=== PATIENT | female | born 1980 | race American Indian/Alaskan Native ===

== ENCOUNTER 2017-09-21 18:04 | Emergency (ER) | payer SELFPAY ==
[2017-09-21 18:52] VITALS: BP 120/69
[2017-09-21] MEDS ORDERED: TORADOL IM ONE (19:11)
[2017-09-21] MEDS ORDERED: DELTASONE PO ONE (19:11)
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
== END 2017-09-21 20:30 | disposition home or self-care (01) ==
LOC: ED 18:04
DX: S39.012A Strain of muscle, fascia and tendon of lower back, initial encounter (principal); X58.XXXA Exposure to other specified factors, initial encounter; Y93.89 Activity, other specified; Y92.89 Other specified places as the place of occurrence of the external cause; Y99.8 Other external cause status
CPT/HCPCS: 96372; 99282; J1885; J7512

== ENCOUNTER 2018-05-14 12:20 | Emergency (ER) | payer OTHER ==
[2018-05-14 12:30] VITALS: BP 154/79
[2018-05-14] MEDS ORDERED: TORADOL IM ONE (14:36)
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
== END 2018-05-14 17:25 | disposition home or self-care (01) ==
LOC: ED 12:20
DX: M54.2 Cervicalgia (principal); M54.89 Other dorsalgia; F17.200 Nicotine dependence, unspecified, uncomplicated; V89.2XXA Person injured in unspecified motor-vehicle accident, traffic, initial encounter; Y93.89 Activity, other specified; Y99.8 Other external cause status; Y92.410 Unspecified street and highway as the place of occurrence of the external cause
CPT/HCPCS: 71046; 72040; 72070; 72100; 96372; 99283; J1885

== ENCOUNTER 2018-06-19 14:15 | Emergency (ER) | payer OTHER ==
[2018-06-19 15:15] VITALS: BP 111/87
--- NOTE | 2018-06-19 15:16 | Emergency Department Report ---
Addendum entered and electronically signed by JASS LANCE FNP 06/19/18 15:17: Blank Doc - Documentation Documentation: Ice applied to left finger. Original Note: Blank Doc - Documentation Documentation: This is a 38 y.o. female that presents with pain to 3rd proximal phalanx. Patient accidentally closed her finger in a chair a few hours ago. This initial assessment diagnostic orders/clinical plan/treatment(s) is/are subject to change based on patient's health status, clinical progression and re- assessment by fellow clinical providers in the ED. Further treatment and workup at subsequent clinical providers discretion. Patient/guardians urged not to elope from ED s their condition may be serious if not clinically assessed and managed. Initial orders include: 1- XR of left fingers Fast track for further evaluation.
[2018-06-19] MEDS ORDERED: NORCO 7.5/325 PO ONE (16:15)
--- NOTE | 2018-06-19 16:46 | Emergency Department Report ---
ED Upper Extremity Inj HPI - General Chief Complaint: Extremity Injury, Upper Stated Complaint: LEFT FINGER INJURY Time Seen by Provider: 06/19/18 15:11 Source: patient Mode of arrival: Ambulatory Limitations: No Limitations - History of Present Illness Initial Comments: 38-year-old female presents to ED with injury to left middle finger. Patient states she fell and was attempting to stop her fall by holding on to a folding step ladder, and the ladder folded onto her finger. Patient states she felt something pop. Has abrasion to finger. States tetanus is UTD Complaint: Injury to:: left, finger -: This afternoon Other Injuries: none Place: home Improves With: immobilization Worsens With: movement of extremity Context: fall, crush Associated Symptoms: numbness, heard/felt popping sensat - Related Data Previous Rx's Medication Instructions Recorded Last Taken Type Ibuprofen [Motrin] 600 mg PO Q8H PRN #30 tablet 09/21/17 Unknown Rx Prednisone [predniSONE 10 mg 10 mg PO .TAPER #1 tab.ds.pk 09/21/17 Unknown Rx (6-Day Pack, 21 Tabs)] Cyclobenzaprine [Flexeril 10 MG 10 mg PO TID PRN #12 tablet 05/14/18 Unknown Rx TAB] Ibuprofen 800 mg PO TID PRN #20 tablet 05/14/18 Unknown Rx HYDROcodone/ACETAMINOPHEN [[place] 1 each PO Q6HR PRN #10 tablet 06/19/18 Unknown Rx 5-325 Tablet] Naproxen [Naprosyn] 500 mg PO BID #20 tablet 06/19/18 Unknown Rx cephALEXin [Keflex] 500 mg PO Q12HR #10 cap 06/19/18 Unknown Rx Allergies Allergy/AdvReac Type Severity Reaction Status Date / Time No Known Allergies Allergy Verified 05/14/18 12:28 ED Review of Systems ROS: Stated complaint: LEFT FINGER INJURY Other details as noted in HPI Comment: All other systems reviewed and negative Musculoskeletal: as per HPI Neurological: paresthesias ED Past Medical Hx - Past Medical History Additional medical history: "When born my right arm was broke". Cyst on Brain - Surgical History Past Surgical History?: No - Social History Smoking Status: Current Every Day Smoker Substance Use Type: Marijuana, Prescribed - Medications Home Medications: Home Medications Medication Instructions Recorded Confirmed Last Taken Type Ibuprofen [Motrin] 600 mg PO Q8H PRN #30 tablet 09/21/17 Unknown Rx Prednisone [predniSONE 10 mg 10 mg PO .TAPER #1 tab.ds.pk 09/21/17 Unknown Rx (6-Day Pack, 21 Tabs)] Cyclobenzaprine [Flexeril 10 MG 10 mg PO TID PRN #12 tablet 05/14/18 Unknown Rx TAB] Ibuprofen 800 mg PO TID PRN #20 tablet 05/14/18 Unknown Rx HYDROcodone/ACETAMINOPHEN [[place] 1 each PO Q6HR PRN #10 tablet 06/19/18 Unknown Rx 5-325 Tablet] Naproxen [Naprosyn] 500 mg PO BID #20 tablet 06/19/18 Unknown Rx cephALEXin [Keflex] 500 mg PO Q12HR #10 cap 06/19/18 Unknown Rx ED Physical Exam - General Limitations: No Limitations General appearance: alert, in no apparent distress - Head Head exam: Present: atraumatic, normocephalic - Eye Eye exam: Present: normal appearance - ENT ENT exam: Present: mucous membranes moist - Neck Neck exam: Present: normal inspection - Respiratory Respiratory exam: Present: normal lung sounds bilaterally. Absent: respiratory distress - Cardiovascular Cardiovascular Exam: Present: regular rate, normal rhythm - GI/Abdominal GI/Abdominal exam: Absent: distended - Extremities Exam Extremities exam: Present: other (moderate swelling to left middle finger w/ majority of tenderness to PIP, slight bruising present, small abrasion present laterally, pt able to flex and extend minimally due to pain and swelling) - Neurological Exam Neurological exam: Present: motor sensory deficit (decreased sensation to distal tip of left middle finger) - Psychiatric Psychiatric exam: Present: normal affect, normal mood - Skin Skin exam: Present: warm, dry ED Course Vital Signs 06/19/18 06/19/18 06/19/18 15:07 15:12 16:21 Temperature 97.8 F 97.8 F Pulse Rate 59 L 59 L Respiratory 18 20 18 Rate Blood Pressure 111/87 Blood Pressure 111/67 [Left] O2 Sat by Pulse 99 99 Oximetry ED Medical Decision Making - Radiology Data Radiology results: pending, image reviewed interpreted by me: Finger xray: no acute fracture or dislocation * PACS system down; no official interpretation at this time - Medical Decision Making 38-year-old female with crush injury to left middle finger. No obvious fracture or dislocation on plain films. The official read at this time as there are technical difficulties and sending images to radiology service. Possible ligamentous injury. Finger splint placed. Prescription given for pain meds and antibiotics the patient has small abrasion to the lateral aspect of her finger. Orthopedic follow-up given. Return precautions given. - Differential Diagnosis fracture, dislocation, sprain Critical care attestation.: If time is entered above; I have spent that time in minutes in the direct care of this critically ill patient, excluding procedure time. ED Disposition Clinical Impression: Contusion of left middle finger Disposition: TO HOME OR SELFCARE Is pt being admited?: No Condition: Stable Instructions: Finger Sprain (ED) Prescriptions: cephALEXin [Keflex] 500 mg PO Q12HR #10 cap HYDROcodone/ACETAMINOPHEN [[place] 5-325 Tablet] 1 each PO Q6HR PRN #10 tablet PRN Reason: pain Naproxen [Naprosyn] 500 mg PO BID #20 tablet Referrals: PETER MERCADO MD [Primary Care Provider] - 3-5 Days TERRY CUNNINGHAM MD [Staff Physician] - 3-5 Days Time of Disposition: 16:44
--- NOTE | 2018-06-22 08:16 | XRay Report ---
FINAL REPORT EXAM: XR FINGER(S) 2+V LT HISTORY: 3rd proximal finger TECHNIQUE: AP, lateral, and oblique views of the left 3rd finger PRIORS: None. FINDINGS: There is no evidence for acute fracture or dislocation. Generalized soft tissue swelling of the 3rd f nam is seen. No radiopaque foreign bodies are seen. Bony mineralization is normal and joint spaces are maintained. IMPRESSION: No acute bony abnormality noted. Soft tissue swelling of the 3rd digit
== END 2018-06-19 17:30 | disposition home or self-care (01) ==
LOC: ED 14:15
DX: S60.032A Contusion of left middle finger without damage to nail, initial encounter (principal); F17.200 Nicotine dependence, unspecified, uncomplicated; F12.90 Cannabis use, unspecified, uncomplicated; W23.0XXA Caught, crushed, jammed, or pinched between moving objects, initial encounter; Y93.89 Activity, other specified; Y92.89 Other specified places as the place of occurrence of the external cause; Y99.8 Other external cause status
CPT/HCPCS: 99283

== ENCOUNTER 2018-10-19 08:46 | Emergency (ER) | payer SELFPAY ==
[2018-10-19] MEDS ORDERED: TYLENOL PO ONE (09:02)
[2018-10-19] MEDS ORDERED: TYLENOL ONE (09:05)
[2018-10-19 09:29] LABS: Basophils % (Auto) 0.4 % (0.0-1.8); Hematocrit 37.4 % (30.3-42.9); Hemoglobin 12.7 gm/dl (10.1-14.3); Lymphocytes # (Auto) 1.2 K/mm3 (1.2-5.4); Lymphocytes % (Auto) 9.8 % (13.4-35.0); Mean Corpuscular HGB Conc 34 % (30-34); Mean Corpuscular Volume 84 fl (79-97); Monocytes # (Auto) 0.6 K/mm3 (0.0-0.8); Monocytes % (Auto) 4.7 % (0.0-7.3); Platelet Count 246 K/mm3 (140-440); Red Blood Count 4.48 M/mm3 (3.65-5.03); Red Cell Distribution Width 14.1 % (13.2-15.2)
[2018-10-19 09:47] LABS: Alanine Aminotransferase 7 units/L (7-56); BUN/Creatinine Ratio 8; Blood Urea Nitrogen 5 mg/dL (7-17); Calcium 8.5 mg/dL (8.4-10.2); Hemolysis Index 7
[2018-10-19 10:20] LABS: Bacteria,Urine 1+ /HPF (Negative); Bilirubin,Urine NEG (Negative); Blood,Urine NEG (Negative); Color,Urine Yellow (Yellow); Mucus,Urine FEW /HPF; Protein,Urine <15 mg/dL mg/dL (Negative); Urobilinogen,Urine < 2.0 mg/dL (<2.0)
[2018-10-19] MEDS ORDERED: ANTIVERT PO ONE (11:13)
[2018-10-19] MEDS ORDERED: TORADOL IM ONE (11:14)
--- NOTE | 2018-10-19 11:23 | Emergency Department Report ---
ED General Adult HPI - General Chief complaint: Fever Stated complaint: DIZZY,NAUSEA,BODY PAIN Source: patient Mode of arrival: Ambulatory Limitations: No Limitations - History of Present Illness Initial comments: Patient presents to the emergency department with a major complaint of dizziness and rash to her lower back. Patient denies headache, chest pain, shortness breath. Patient denies any head trauma. -: Gradual Severity scale (0 -10): 2 Quality: dull Consistency: constant Improves with: none Worsens with: none Associated Symptoms: denies other symptoms Treatments Prior to Arrival: none - Related Data Previous Rx's Medication Instructions Recorded Last Taken Type Ibuprofen [Motrin] 600 mg PO Q8H PRN #30 tablet 09/21/17 Unknown Rx Prednisone [predniSONE 10 mg 10 mg PO .TAPER #1 tab.ds.pk 09/21/17 Unknown Rx (6-Day Pack, 21 Tabs)] Cyclobenzaprine [Flexeril 10 MG 10 mg PO TID PRN #12 tablet 05/14/18 Unknown Rx TAB] Ibuprofen [Ibuprofen 800] 800 mg PO TID PRN #20 tablet 05/14/18 Unknown Rx HYDROcodone/ACETAMINOPHEN [Randolph 1 each PO Q6HR PRN #10 tablet 06/19/18 Unknown Rx 5-325 Tablet] Naproxen [Naprosyn] 500 mg PO BID #20 tablet 06/19/18 Unknown Rx cephALEXin [Keflex] 500 mg PO Q12HR #10 cap 06/19/18 Unknown Rx Meclizine [Antivert] 25 mg PO TID PRN #30 tablet 10/19/18 Unknown Rx Naproxen [Naprosyn] 500 mg PO BID PRN #20 tablet 10/19/18 Unknown Rx Sulfamethoxazole/Trimethoprim 2 each PO BID #28 tablet 10/19/18 Unknown Rx [Bactrim DS TAB] Allergies Allergy/AdvReac Type Severity Reaction Status Date / Time No Known Allergies Allergy Verified 05/14/18 12:28 ED Review of Systems ROS: Stated complaint: DIZZY,NAUSEA,BODY PAIN Other details as noted in HPI Comment: All other systems reviewed and negative Constitutional: denies: chills, fever Eyes: denies: eye pain, eye discharge, vision change ENT: denies: ear pain, throat pain Respiratory: denies: cough, shortness of breath, wheezing Cardiovascular: denies: chest pain, palpitations Endocrine: no symptoms reported Gastrointestinal: denies: abdominal pain, nausea, diarrhea Genitourinary: denies: urgency, dysuria, discharge Musculoskeletal: denies: back pain, joint swelling, arthralgia Skin: denies: rash, lesions Neurological: denies: headache, weakness, paresthesias Psychiatric: denies: anxiety, depression Hematological/Lymphatic: denies: easy bleeding, easy bruising ED Past Medical Hx - Past Medical History Previous Medical History?: Yes Additional medical history: "When born my right arm was broke". Cyst on Brain - Surgical History Past Surgical History?: No - Social History Smoking Status: Never Smoker Substance Use Type: Marijuana - Medications Home Medications: Home Medications Medication Instructions Recorded Confirmed Last Taken Type Ibuprofen [Motrin] 600 mg PO Q8H PRN #30 tablet 09/21/17 Unknown Rx Prednisone [predniSONE 10 mg 10 mg PO .TAPER #1 tab.ds.pk 09/21/17 Unknown Rx (6-Day Pack, 21 Tabs)] Cyclobenzaprine [Flexeril 10 MG 10 mg PO TID PRN #12 tablet 05/14/18 Unknown Rx TAB] Ibuprofen [Ibuprofen 800] 800 mg PO TID PRN #20 tablet 05/14/18 Unknown Rx HYDROcodone/ACETAMINOPHEN [Randolph 1 each PO Q6HR PRN #10 tablet 06/19/18 Unknown Rx 5-325 Tablet] Naproxen [Naprosyn] 500 mg PO BID #20 tablet 06/19/18 Unknown Rx cephALEXin [Keflex] 500 mg PO Q12HR #10 cap 06/19/18 Unknown Rx Meclizine [Antivert] 25 mg PO TID PRN #30 tablet 10/19/18 Unknown Rx Naproxen [Naprosyn] 500 mg PO BID PRN #20 tablet 10/19/18 Unknown Rx Sulfamethoxazole/Trimethoprim 2 each PO BID #28 tablet 10/19/18 Unknown Rx [Bactrim DS TAB] ED Physical Exam - General Limitations: No Limitations General appearance: alert - Head Head exam: Present: atraumatic, normocephalic - Eye Eye exam: Present: normal appearance, PERRL, EOMI - ENT ENT exam: Present: mucous membranes moist - Neck Neck exam: Present: normal inspection - Respiratory Respiratory exam: Present: normal lung sounds bilaterally. Absent: respiratory distress, wheezes, rales - Cardiovascular Cardiovascular Exam: Present: regular rate, normal rhythm. Absent: systolic murmur, diastolic murmur, rubs, gallop - GI/Abdominal GI/Abdominal exam: Present: soft, normal bowel sounds. Absent: distended, tenderness - Extremities Exam Extremities exam: Present: normal inspection - Back Exam Back exam: Present: normal inspection - Neurological Exam Neurological exam: Present: alert, oriented X3, CN II-XII intact, normal gait, other (able to recreate symptoms around the eye and head movement). Absent: motor sensory deficit - Psychiatric Psychiatric exam: Present: normal affect, normal mood - Skin Skin exam: Present: warm, dry, intact, normal color, rash, other (patient has cellulitis to left lower back) ED Course Vital Signs 10/19/18 08:52 Temperature 100.4 F H Pulse Rate 108 H Respiratory 16 Rate Blood Pressure 105/68 O2 Sat by Pulse 97 Oximetry ED Medical Decision Making - Lab Data Result diagrams: 10/19/18 09:11 10/19/18 09:11 Lab Results 10/19/18 10/19/18 10/19/18 Range/Units 09:11 09:11 09:11 WBC 11.8 H (4.5-11.0) K/mm3 RBC 4.48 (3.65-5.03) M/mm3 Hgb 12.7 (10.1-14.3) gm/dl Hct 37.4 (30.3-42.9) % MCV 84 (79-97) fl MCH 28 (28-32) pg MCHC 34 (30-34) % RDW 14.1 (13.2-15.2) % Plt Count 246 (140-440) K/mm3 Lymph % (Auto) 9.8 L (13.4-35.0) % [place] % (Auto) 4.7 (0.0-7.3) % Eos % (Auto) 0.0 (0.0-4.3) % Baso % (Auto) 0.4 (0.0-1.8) % Lymph # 1.2 (1.2-5.4) K/mm3 [place] # 0.6 (0.0-0.8) K/mm3 Eos # 0.0 (0.0-0.4) K/mm3 Baso # 0.0 (0.0-0.1) K/mm3 Seg Neutrophils % 85.1 H (40.0-70.0) % Seg Neutrophils # 10.1 H (1.8-7.7) K/mm3 Sodium 133 L (137-145) mmol/L Potassium 3.9 (3.6-5.0) mmol/L Chloride 96.9 L (98-107) mmol/L Carbon Dioxide 24 (22-30) mmol/L Anion Gap 16 mmol/L BUN 5 L (7-17) mg/dL Creatinine 0.6 L (0.7-1.2) mg/dL Estimated GFR > 60 ml/min BUN/Creatinine Ratio 8 % Glucose 148 H (65-100) mg/dL Calcium 8.5 (8.4-10.2) mg/dL Total Bilirubin 1.10 (0.1-1.2) mg/dL AST 14 (5-40) units/L ALT 7 (7-56) units/L Alkaline Phosphatase 73 (35-129) units/L Total Protein 7.8 (6.3-8.2) g/dL Albumin 4.0 (3.9-5) g/dL Albumin/Globulin Ratio 1.1 % HCG, Qual Negative (Negative) Urine Color (Yellow) Urine Turbidity (Clear) Urine pH (5.0-7.0) Ur Specific [place] (1.003-1.030) Urine Protein (Negative) mg/dL Urine Glucose (UA) (Negative) mg/dL Urine Ketones (Negative) mg/dL Urine Blood (Negative) Urine Nitrite (Negative) Urine Bilirubin (Negative) Urine Urobilinogen (<2.0) mg/dL Ur Leukocyte Esterase (Negative) Urine WBC (Auto) (0.0-6.0) /HPF Urine RBC (Auto) (0.0-6.0) /HPF U Epithel Cells (Auto) (0-13.0) /HPF Urine Bacteria (Auto) (Negative) /HPF Urine Mucus /HPF 10/19/18 Range/Units 09:44 WBC (4.5-11.0) K/mm3 RBC (3.65-5.03) M/mm3 Hgb (10.1-14.3) gm/dl Hct (30.3-42.9) % MCV (79-97) fl MCH (28-32) pg MCHC (30-34) % RDW (13.2-15.2) % Plt Count (140-440) K/mm3 Lymph % (Auto) (13.4-35.0) % [place] % (Auto) (0.0-7.3) % Eos % (Auto) (0.0-4.3) % Baso % (Auto) (0.0-1.8) % Lymph # (1.2-5.4) K/mm3 [place] # (0.0-0.8) K/mm3 Eos # (0.0-0.4) K/mm3 Baso # (0.0-0.1) K/mm3 Seg Neutrophils % (40.0-70.0) % Seg Neutrophils # (1.8-7.7) K/mm3 Sodium (137-145) mmol/L Potassium (3.6-5.0) mmol/L Chloride (98-107) mmol/L Carbon Dioxide (22-30) mmol/L Anion Gap mmol/L BUN (7-17) mg/dL Creatinine (0.7-1.2) mg/dL Estimated GFR ml/min BUN/Creatinine Ratio % Glucose (65-100) mg/dL Calcium (8.4-10.2) mg/dL Total Bilirubin (0.1-1.2) mg/dL AST (5-40) units/L ALT (7-56) units/L Alkaline Phosphatase (35-129) units/L Total Protein (6.3-8.2) g/dL Albumin (3.9-5) g/dL Albumin/Globulin Ratio % HCG, Qual (Negative) Urine Color Yellow (Yellow) Urine Turbidity Slightly-cloudy (Clear) Urine pH 8.0 H (5.0-7.0) Ur Specific [place] 1.016 (1.003-1.030) Urine Protein <15 mg/dl (Negative) mg/dL Urine Glucose (UA) Neg (Negative) mg/dL Urine Ketones Neg (Negative) mg/dL Urine Blood Neg (Negative) Urine Nitrite Neg (Negative) Urine Bilirubin Neg (Negative) Urine Urobilinogen < 2.0 (<2.0) mg/dL Ur Leukocyte Esterase Neg (Negative) Urine WBC (Auto) 2.0 (0.0-6.0) /HPF Urine RBC (Auto) 4.0 (0.0-6.0) /HPF U Epithel Cells (Auto) 6.0 (0-13.0) /HPF Urine Bacteria (Auto) 1+ (Negative) /HPF Urine Mucus Few /HPF - Medical Decision Making Results discussed with patient Patient platelet declined CT of the head Critical care attestation.: If time is entered above; I have spent that time in minutes in the direct care of this critically ill patient, excluding procedure time. ED Disposition Clinical Impression: Vertigo, Cellulitis Disposition: TO HOME OR SELFCARE Is pt being admited?: No Does the pt Need Aspirin: No Instructions: Vertigo (ED), Cellulitis (ED) Additional Instructions: return if worse Prescriptions: Meclizine [Antivert] 25 mg PO TID PRN #30 tablet PRN Reason: Vertigo Sulfamethoxazole/Trimethoprim [Bactrim DS TAB] 2 each PO BID #28 tablet Naproxen [Naprosyn] 500 mg PO BID PRN #20 tablet PRN Reason: pain Referrals: PETER MERCADO MD [Primary Care Provider] - 3-5 Days [facility] [Provider Group] - 3-5 Days [facility] [Provider Group] - 3-5 Days Time of Disposition: 11:19
[2018-10-19 11:40] VITALS: BP 114/68
== END 2018-10-19 11:38 | disposition home or self-care (01) ==
LOC: ED 08:46
DX: R42 Dizziness and giddiness (principal); L03.90 Cellulitis, unspecified; F12.10 Cannabis abuse, uncomplicated
CPT/HCPCS: 36415; 80053; 81001; 84703; 85025; 96372; 99283; J1885

== ENCOUNTER 2021-10-28 18:00 | Emergency (ER) | payer OTHER | END 2021-10-28 19:00 | disposition left against medical advice (07) | LOC: ED 18:00 | DX: S99.922A Unspecified injury of left foot, initial encounter (principal); Z53.21 Procedure and treatment not carried out due to patient leaving prior to being seen by health care provider ==